=== PATIENT | male | born 2000 | race Caucasian/White ===

== ENCOUNTER 2022-03-23 20:16 | Emergency (ER) | payer BC ==
[~2022-03-23] VITALS: Ht 182.9 cm; Wt 68.2 kg
[2022-03-23 21:27] VITALS: BP 112/71; PULSE 72; TEMP 98.5
== END 2022-03-23 21:27 | disposition home or self-care (01) ==
LOC: COL.ER 20:16
DX: R59.0 Localized enlarged lymph nodes (principal)